=== PATIENT | female | born 1945 | race Caucasian/White ===

== ENCOUNTER 2017-02-15 12:25 | Day surgery (SDC) | payer OTHER, MEDICARE ==
[~2017-02-15] VITALS: Ht 170.2 cm; Wt 93.0 kg
[~2017-02-15 12:25] MED LIST: ATORVASTATIN CA20 MG PO; CALCIUM 500 +1 EACH PO; CENTRUM SILVER1 EAC4 PO; COUMADIN2.5 MG PO; FISH OIL 1,2001 EAC4 PO; FLEXERIL10 MG PO; IRON325 M1 PO; KLONOPIN0.5 M1 PO; LEVOXYL75 MCG PO; LEXAPRO20 MG PO; LIPITOR20 MG PO; MOBIC15 MG PO; PERCOCET 5/31 TABLET PO; TIROSINT100 MCG PO; ULTRAM50 MG PO; VISTARIL25 MG PO
== END 2017-02-15 13:52 | disposition home or self-care (01) ==
LOC: PAIN 12:25
DX: M47.814 Spondylosis without myelopathy or radiculopathy, thoracic region (principal); M47.815 Spondylosis without myelopathy or radiculopathy, thoracolumbar region; F41.9 Anxiety disorder, unspecified; M19.90 Unspecified osteoarthritis, unspecified site; M51.9 Unspecified thoracic, thoracolumbar and lumbosacral intervertebral disc disorder; M46.1 Sacroiliitis, not elsewhere classified; E03.9 Hypothyroidism, unspecified; E78.5 Hyperlipidemia, unspecified; F32.9 Major depressive disorder, single episode, unspecified; E66.9 Obesity, unspecified; Z68.32 Body mass index [BMI] 32.0-32.9, adult; R25.1 Tremor, unspecified; Z80.3 Family history of malignant neoplasm of breast; Z82.5 Family history of asthma and other chronic lower respiratory diseases; Z82.49 Family history of ischemic heart disease and other diseases of the circulatory system; Z83.49 Family history of other endocrine, nutritional and metabolic diseases; Z80.49 Family history of malignant neoplasm of other genital organs; Z88.8 Allergy status to other drugs, medicaments and biological substances; Z91.030 Bee allergy status; Z91.040 Latex allergy status
CPT/HCPCS: J1030; J2250; J3010; S0020

== ENCOUNTER 2017-10-16 11:18 | Day surgery (SDC) | payer OTHER, MEDICARE ==
[~2017-10-16] VITALS: Ht 167.6 cm; Wt 96.2 kg
[~2017-10-16 11:18] MED LIST changes: +DESVENLAFAXINE50 M3 PO; +MELATONIN5 M1 PO; +ZANAFLEX2 M1 PO
== END 2017-10-16 12:47 | disposition home or self-care (01) ==
LOC: PAIN 11:18 → SDC 12:30 → PAIN 12:47
DX: M47.815 Spondylosis without myelopathy or radiculopathy, thoracolumbar region (principal); G89.29 Other chronic pain; M54.5 Low back pain; M46.1 Sacroiliitis, not elsewhere classified; M51.35 Other intervertebral disc degeneration, thoracolumbar region; R94.31 Abnormal electrocardiogram [ECG] [EKG]; E78.5 Hyperlipidemia, unspecified; E03.9 Hypothyroidism, unspecified; Z87.891 Personal history of nicotine dependence
CPT/HCPCS: J1030; J2250; J3010; S0020

== ENCOUNTER 2017-10-23 11:53 | Day surgery (SDC) | payer OTHER, MEDICARE ==
[~2017-10-23] VITALS: Ht 167.6 cm; Wt 96.2 kg
== END 2017-10-23 13:35 | disposition home or self-care (01) ==
LOC: PAIN 11:53
DX: M47.814 Spondylosis without myelopathy or radiculopathy, thoracic region (principal); M47.816 Spondylosis without myelopathy or radiculopathy, lumbar region; M51.34 Other intervertebral disc degeneration, thoracic region; M51.36 Other intervertebral disc degeneration, lumbar region; M54.6 Pain in thoracic spine; M54.5 Low back pain; G89.29 Other chronic pain; E03.9 Hypothyroidism, unspecified; R73.03 Prediabetes; M46.1 Sacroiliitis, not elsewhere classified; Z87.891 Personal history of nicotine dependence; Z79.891 Long term (current) use of opiate analgesic
CPT/HCPCS: J1030; J2250; J3010; S0020